=== PATIENT | male | born 1970 | race Caucasian/White ===

== ENCOUNTER 2016-10-16 03:16 | Inpatient (IN) | payer MEDICAID, OTHER ==
[~2016-10-16] VITALS: Ht 175.3 cm; Wt 105.4 kg
--- NOTE | ~2016-10-16 | HP ---
PATIENT'S NAME: MARQUES GLASER [facility] AGE: 46 Y [address] ROOM: [id number] [place], [place] [address] [facility]: [facility] ADMIT DATE: 10/16/2016 History & Physical DISCHARGE DATE: FAMILY PHYSICIAN: PHYSICIAN, NO ATTENDING PHYSICIAN: SUSANNE BISWAS DATE OF SERVICE: CHIEF COMPLAINT: Syncope and chest tightness. HISTORY OF PRESENT ILLNESS: This is a 46-year-old male who is somewhat a poor historian. Given that he is nonspecific with his symptoms. The story is that he has been having this recurrent syncope for over the past 1 or 2 years and sometimes, they are associated with after taking a hot shower or after urinating what seems like situational syncope. He also has been having this chronic shortness of breath on exertion for the last 6 months. That has been getting worse. He also has been having this on and off chest pain in the whole anterior chest for roughly 2-3 years and sometimes is associated with exertion, sometimes is at rest. He states that he had this chest pain about 1- 2 times a day and roughly on an average 2 days per week. He also chronically has chronic yellowish productive cough in the morning when he wakes up from his heavy smoking. Today, around 1:00 a.m. in the morning, the patient was sitting on the kitchen table and when he tried to walk, he said that he again suffered another syncope without any prodrome symptoms. He said he probably passed out about 2 minutes, that is what the sister told him when he woke up. When the patient woke up, the patient had no recollection about what happened, but he also denies any jerking movement or any drooling or urinary incontinence or fecal incontinence, but he said he was a little bit slightly confused upon awakening. He said that when he woke up, he had this chest tightness in his anterior whole chest, intensity about 2/10 without radiation and is constant. Because of these symptoms, the patient was brought to the emergency room by his sister for evaluation. The patient's primary care physician was in [place], but he has not seen the primary care physician for several years and he does not usually go to a physician. The patient is adopted, therefore he does not know anything about his parents, but he has a sister who has had 3 myocardial infarctions at age 40 and required multiple stents and also has diabetes type 2. The patient is a heavy smoker, about 1-1/2 pack per day for the last 30 years. He chronically coughs yellowish phlegm, which is likely from his undiagnosed COPD. The patient has never been told he had any heart problem, he has never PATIENT'S NAME: MARQUES GLASER [facility] AGE: 46 Y [address] ROOM: [place] [address] [facility]: [facility] ADMIT DATE: 10/16/2016 History & Physical DISCHARGE DATE: FAMILY PHYSICIAN: PHYSICIAN, NO ATTENDING PHYSICIAN: SUSANNE BISWAS been told he has hypertension, and he has never seen a rehab aid before, and he has also never had an echo before either. The patient has also been complaining of several months of peripheral neuropathy symptoms such as peripheral neuropathy symptoms what he describes as numbness and also tingling and sometimes pain in bilateral lower extremities, worse at night during sleep. Pain goal three and please. REVIEW OF SYSTEMS: As mentioned in the history of present illness. All other systems were reviewed and they were negative except those mentioned in the history of present illness. PAST MEDICAL HISTORY: Diabetes type 2. No other known past medical history according to the patient. ALLERGIES: NO KNOWN DRUG ALLERGIES ACCORDING TO THE PATIENT. HOME MEDICATIONS: The list will be reconciled with the pharmacy in the morning. The patient states that he does take metformin at home, but he does not take anything for blood pressure. SOCIAL HISTORY: The patient is a heavy smoker about 1-12 packs per day for the last 30 years and he still smokes. The patient denies any alcohol or any illegal drug use. PAST SURGICAL HISTORY: Status post nasal polyp removal. FAMILY HISTORY: The patient is adopted. The patient's sister has had 3 myocardial infarctions requiring multiple stents and also has diabetes and the sister had all 3 myocardial infarctions in her 40s. PHYSICAL EXAMINATION: VITAL SIGNS: Temperature 98, blood pressure 145/87, respirations 14, heart rate 86, saturation 96% on 2 L nasal cannula. GENERAL APPEARANCE: Alert and oriented x3, in no acute distress. HEENT: Pupils are equally round and reactive to light. Extraocular muscles intact. Anicteric sclerae. Nasal turbinates are normal bilaterally. Moist oral mucosa. NECK: Positive JVD. CARDIOVASCULAR: Regular rate and rhythm. Normal S1, S2. No murmur, no rubs, PATIENT'S NAME: MARQUES GLASER [facility] AGE: 46 Y [address] ROOM: [id number] [place], [place] [address] [facility] ADMIT DATE: 10/16/2016 History & Physical DISCHARGE DATE: FAMILY PHYSICIAN: PHYSICIAN, NO ATTENDING PHYSICIAN: SUSANNE BISWAS no gallops. RESPIRATORY: I could appreciate rales in bibasilar lungs. No wheezing, no rhonchi, and no crackles. ABDOMEN: Obese, soft, nontender, nondistended, normal bowel sounds, no hepatosplenomegaly. Bowel sounds are present. EXTREMITIES: +2 bilateral pitting edema in bilateral lower extremities. The patient was not aware that his legs were swollen. NEUROLOGICAL: Grossly nonfocal. SKIN: No ulcer, no rash, no cyanosis. NEUROLOGIC: The patient has a decreased sensation in bilateral lower extremity, especially in bilateral feet. Otherwise, unremarkable. LABORATORY DATA: Troponin is less than 0.04, the first 2 sets. CPK 95, followed by 88. ProBNP 1735. White blood cells 11.1, hemoglobin 13.5, hematocrit 38.5, MCV 91.2, platelets 307. Glucose 287, BUN 14, creatinine 0.8. Sodium 139, potassium 4.7, chloride 104, CO2 27, calcium 8.9. Total protein 6.5, albumin 2.6, AST 16, ALT 16, alkaline phosphatase 122, total bilirubin 0.2, magnesium 2.1. Anion gap 12.7. GFR more than 60. Globulin 3.9. Hemoglobin A1c 11.8, INR 0.89, PTT 27. Urinalysis: 250 glucose. Negative leukocyte. Negative nitrite. Rare bacteria, 2-5 white blood cells, 20-50 red blood cells, 150 blood. CK-MB 2.1, followed by 1.8. D-dimer 1.53. IMAGING STUDIES: Chest x-ray on admission, the official report is pending. Based on my review, evidence of bilateral pleural effusion. 1. CT pulmonary angiogram on admission, the preliminary report was read as no pulmonary emboli. Mild cardiomegaly. Small bilateral pleural effusion. Mild bilateral interstitial thickening with patchy airspace opacities consistent with pulmonary edema. Findings likely represent congestive heart failure. Indeterminate bilateral pulmonary nodules with the largest measuring at 10 mm. 2. EKG on admission on October 16, 2016, at 3:18 a.m. show sinus tachycardia, heart rate of 101, RI 167 milliseconds, QRS 97 milliseconds, QTc 406 milliseconds, and the left axis deviation with a T inversion in the lead aVL consistent with inferior leads. Also, has evidence of LVH; however, I do not appreciate secondary repolarization change in the lateral leads, which is typically seen with left ventricular hypertrophy. 3. No prior EKG for comparison. ED COURSE: In the emergency room, the patient received one dose of IV Lasix 40 mg and one dose of a full dose aspirin 325 mg p.o. The patient has had about 250 mL of clear looking yellow urine after the Lasix was given. PATIENT'S NAME: MARQUES GLASER [facility] AGE: 46 Y [address] ROOM: [place] [address] LOCATION: [facility] ADMIT DATE: 10/16/2016 History & Physical DISCHARGE DATE: FAMILY PHYSICIAN: PHYSICIAN, NO ATTENDING PHYSICIAN: SUSANNE BISWAS ASSESSMENT AND PLAN: 1. Regarding his new onset congestive heart failure: I am going to get an echo in the morning to see which type of the heart failure this is. I will get a Cardiology consult in the morning. I have already spoken to Doug from the [facility] about this case and the reason for consult. I will cycle cardiac enzymes every 6 hours for 2 more sets. EKG again in the morning. Looking at the T-wave inversion in the inferior leads, to see if it has already resolved. I will defer further Lasix to Cardiology evaluation. N.p.o. for now in case will require some additional tests such as a stress test. The patient does have multiple risk factors for coronary artery disease including heavy smoking, strong sister history of myocardial infarction and required multiple stents, and the patient being diabetic himself, and sedentary lifestyle. Fluid restriction to less than 1.2 L per day and strict in's and out's and also daily weights. 2. Regarding his recurrent syncope: We will get an echo in the morning and defer evaluation by Cardiology. Continue telemetry monitoring for any arrhythmia. Perhaps, the patient's syncope could be from vasovagal or could be from any arrhythmia that was not yet detected. Continue telemetry monitoring and further plan depends on clinical course. The patient will be on fall precaution. 3. I will also get an orthostatic vital sign to rule out dehydration as the cause of the syncope. 4. Regarding his hyperglycemia from diabetes type 2: I will check A1c to see how well is his diabetes controlled. I will hold the metformin in case the patient requires contrast for any invasive studies. I will do sliding scale while he is in the hospital. If he is on other home medication, they can be continued as long as they do not affect the kidney such as metformin. 5. Regarding his pulmonary nodules: Follow up on the official report of the CT pulmonary angiogram to see what is the final report. If necessary, can consult oncology. Perhaps, this could be malignancy due to his history of heavy smoking for many years. 6. The patient could also have undiagnosed chronic obstructive pulmonary disease from his long-time history of smoking: He is not wheezing. I am not going to start any steroids. I am just going to order some nebulization with p.r.n. titrate by RT for RSS. 7. Regarding his active cigarette smoking: I will give him a nicotine patch 21 g transdermal per day. 8. Code status: He is a full code. Time spent in care on the day of admission 50 minutes including chart review, interviewing the patient, addressing all the questions and concerns that the patient had, examining the patient, and I went over the plan of care in detail with the nurses and also with the patient himself. I answered all of his questions to his satisfaction. Further plan depends on clinical course. PATIENT'S NAME: MARQUES GLASER [facility] AGE: 46 Y [address] ROOM: [address] [address] [facility] ADMIT DATE: 10/16/2016 History & Physical DISCHARGE DATE: FAMILY PHYSICIAN: PHYSICIAN, NO ATTENDING PHYSICIAN: SUSANNE BISWAS The patient currently is in agreement with the plan. I have also already spoken in person to Doug from the [facility] about Cardiology consult for this patient. SUSANNE BISWAS MD CC/sanjiv /[id number] D: [id number] T: [id number] HISTORY & PHYSICAL
--- NOTE | ~2016-10-16 | ER ---
PATIENT'S NAME: MARQUES GLASER [facility] AGE: 46 Y [address] ROOM: [place] [address] LOCATION: [facility] ADMIT DATE: 10/16/2016 ER/Outpatient Report DISCHARGE DATE: FAMILY PHYSICIAN: PHYSICIAN, NO ATTENDING PHYSICIAN: SUSANNE BISWAS Time of Arrival: 0316 hours. Time of Evaluation: 0316 hours. CHIEF COMPLAINT: Chest tightness. HISTORY OF PRESENT ILLNESS: The patient is a 46-year-old male who presents to the emergency department today with chief complaint of chest tightness. He reports he also passed out at home at approximately 2 o'clock this morning. He reports he has been dizzy over the past few weeks and he reports that he has passed out 4-5 times over the past couple months. However, this time, he developed the chest tightness as well as some shortness of breath and diaphoresis. Pain is currently 4-5/10 in severity. Denies any ripping or tearing sensation. No radiation back. PAST MEDICAL HISTORY: [id number] diabetes mellitus, ADHD. PAST SURGICAL HISTORY: Nasal polyps. SOCIAL HISTORY: The patient smokes a pack and a half. Denies any alcohol or illicit drug use. ALLERGIES: NO KNOWN DRUG ALLERGIES. MEDICATIONS: Please see list. PRIMARY CARE DOCTOR: None, just moved here from [place]. REVIEW OF SYSTEMS: All systems are reviewed by myself and are negative with the exception of those discussed in HPI and past medical history. PHYSICAL EXAMINATION: VITAL SIGNS: Weight 106.6 kg, blood pressure 173/96, pulse 106, respiratory PATIENT'S NAME: MARQUES GLASER [facility] AGE: 46 Y [address] ROOM: [place] [address] LOCATION: [facility] ADMIT DATE: 10/16/2016 ER/Outpatient Report DISCHARGE DATE: FAMILY PHYSICIAN: PHYSICIAN, NO ATTENDING PHYSICIAN: SUSANNE BISWAS rate 20, temperature 98.0, oxygen saturation 92% on room air. GENERAL: The patient is a 46-year-old male, who appears older than stated age. HEENT: Normocephalic, atraumatic. Pupils are equal, round, and reactive to light. Mucous membranes are moist. NECK: Supple. There is no nuchal rigidity. CARDIOVASCULAR: Tachycardic. No murmurs, rubs, or gallops. LUNGS: Diminished diffusely. ABDOMEN: Soft, nontender, and nondistended. No rebound, rigidity, or guarding. MUSCULOSKELETAL: The patient moves all 4 extremities. SKIN: The patient has 2+ pretibial edema in bilateral lower extremities. LABORATORY DATA AND X-RAYS: Labs and x-rays are obtained. EKG is obtained, is interpreted by myself at 0322 hours shows sinus tachycardia with a rate of 101, left axis deviation, normal interval. No ST elevation. There is left ventricular hypertrophy. There is T-wave inversions in aVL. CBC is unremarkable except for white blood cell count of 11.1. D-dimer is elevated at 1.53. CMP is unremarkable except for glucose 287. LFTs are normal. Magnesium is normal. Cardiac enzymes are normal. Coags are normal. ProBNP is 1735. One-view chest x-ray is obtained, it is interpreted by myself, shows mild cardiomegaly with some interstitial edema noted. CT scan of the chest, PE study is obtained, is reviewed by Radiology. The report shows no pulmonary embolism. There is mild cardiomegaly with small bilateral pleural effusions. There is mild bilateral interstitial thickening with patchy airspace opacities consistent with pulmonary edema. Findings likely represent congestive heart failure, indeterminate bilateral pulmonary nodules with the largest measuring 10 mm. IMPRESSION: 1. Chest pain, rule out acute coronary syndrome. 2. New onset congestive heart failure with bilateral pleural effusions and pulmonary edema. 3. Poorly controlled diabetes mellitus. 4. Indeterminate bilateral pulmonary nodules. 5. Initial visit. EMERGENCY DEPARTMENT COURSE: The patient was brought back to the examination room. Seen and evaluated by myself. IV is established. Laboratory analysis and imaging are obtained as described above. The patient is given aspirin. The results are obtained. The patient is given 40 mg of Lasix IV. He is placed on 2 L of nasal cannula. The patient does drop into the 90s. I have discussed the results with the patient, his sister, and his who is at the bedside. I have recommended admission to the hospital for further evaluation and treatment management. PATIENT'S NAME: MARQUES GLASER [facility] AGE: 46 Y [address] ROOM: [place] [address] [facility] ADMIT DATE: 10/16/2016 ER/Outpatient Report DISCHARGE DATE: FAMILY PHYSICIAN: CHASIDY DEXTER ATTENDING PHYSICIAN: SUSANNE BISWAS The patient is agreeable. I have contacted Dr. Biswas with the hospitalist Service. He does agree to accept the patient for further evaluation and treatment management. DISPOSITION: The patient is admitted under the care of the hospitalist service, Dr. Biswas, in stable condition. DO ROMANA RICHMOND/modl /[id number] d: 10/16/1647 t: 10/16/162000, OUTPATIENT REPORT
--- NOTE | ~2016-10-16 | CATH ---
Cardiac Diagnostic + PCI Report Demographics Patient Name JAILYN MOHAN Gender Male T Date of 1970 Age 46 year(s) Patient Number [id number] Date of Study 10/16/2016 Visit Number [id number] Room Number G6337 [place] [id number] Ht 175.26 cm Wt 105.5 kg Referring Kathryn Cherry MD Primary Physician Physician Performing Efstratiou Secondary Physician Physician Michelle Medley MD Diagnostic Efstratiou Assisting Physician Physician Michelle Medley MD Interventional Efstratiou Physician Undercover Operator Physician Michelle Medley MD Findings and Conclusions Diagnostic Findings and Conclusion Circumflex is chronically occluded, small with RCA collaterals. RCA has non-critical stenosis. Severe mid-LAD stneosis. Diagnostic Recommendations PCI to LAD. Interventional Findings and Conclusion Successful SOL to mid-LAD. Interventional Recommendations Aspirin, Ticagrelor, and therapy for new onset CHF. Smoking cessation. Procedure Description The patient was brought to the diagnostic cardiac catheterization-EP laboratory in the fasting, non-sedated state. Informed consent was obtained in the written and verbal form after the risks and benefits were explained. The patient had no further questions and agreed to proceed. The planned puncture-incision site(s) were shaved and prepped with ChloraPrep and draped in the usual sterile manner. Conscious sedation, supplemental oxygen, and pain control medications were delivered by a registered nurse under physician guidance. Surface ECG rhythm, blood pressure measurement, and pulse oximetry were monitored throughout the procedure. Arterial access. The access site was infiltrated with lidocaine. The vessel was entered with the Seldinger technique. A sheath was advanced into the vessel and used for catheter placement. Venous access. The access site was infiltrated with 2% lidocaine. The vessel was entered with the Seldinger technique. A sheath was advanced into the vessel and used for catheter placement. Selective left coronary angiography. A catheter was advanced into the left coronary vessel ostium under Fluoroscopic guidance. Contrast was injected by hand. Images were obtained in multiple projections. Selective right coronary angiography. A catheter was advanced into the right coronary vessel ostium under fluoroscopic guidance. Contrast was injected by hand. Images were obtained in multiple projections. Left heart catheterization. A catheter was advanced across the aortic valve to the left ventricle under fluoroscopic guidance. Resting hemodynamics were obtained. Right heart catheterization. A Barnet Chris catheter was successfully advanced to the right atrium, right ventricle, pulmonary artery, and pulmonary artery wedge position under fluoroscopic guidance. Resting hemodynamics were obtained. Measurements included pressures, arterial and venous oxygen saturation samples. The Barnet was removed without difficulty. Angioplasty and Stent Placement: A guiding catheter was used to intubate the vessel. A 0.14 wire was then used to cross the lesion. A balloon catheter was placed across the lesion and inflated. The balloon catheter was then removed. A Drug Eluting Stent was placed and inflated. Post placement angiograms were performed. Arterial and Venous hemostasis was achieved. The patient was transferred to a regular nursing floor via cart accompanied by a nurse. The patient left the laboratory in stable condition. Diagnostic Cath Status: Urgent Interventional Cath Status: Urgent Procedure Procedure Type Diagnostic procedure:Angiography:, Right and Left Heart Cath, Coronary Angios PCI procedure:Drug Eluting Coronary Stent:, LAD Indications: Heart Failure, Syncopal Episode and Shortness of breath. The procedure was explained in detail to the patient. Risks, complications and alternative treatments were reviewed. Written consent was obtained. Medications Reviewed with Patient prior to Procedure. Angiographic Findings Dominance: Right Cardiac Arteries and Lesion Findings LMCA: Lesion on LMCA: Distal subsection.30% stenosis . LAD: Lesion on Mid LAD: Mid subsection.90% stenosis 38 mm length reduced to 10%. Pre procedure DOMITILA III flow was noted. Post Procedure DOMITILA III flow was present. The guidewire cross was successful.The lesion was diagnosed as a high risk lesion.Culprit lesion. Devices used - Whisper Wire .014 x 190. Number of passes: 1. - Emerge Balloon 2.0 x 20. 2 inflation(s) to a max pressure of: 14 rohith. - Promus Premier 3.0 x 38 Stent. 1 inflation(s) to a max pressure of: 15 rohith. - NC Emerge Balloon 3.5 x 15. 3 inflation(s) to a max pressure of: 22 rohith. LCx: Lesion on Prox CX: Proximal subsection.100% stenosis .Chronic total occlusion. Coronary Tree Procedure Data Procedure Date Date: 10/16/2016Start: 09:56 AMEnd: 11:00 AM Entry Locations - Retrograde Percutaneous access was performed through the Right Radial artery (Primary location). A 6 Fr sheath was inserted. Hemostasis was successfully obtained using Mechanical Compression. Closure Comments: 13 ml of air in R. Band by Zion Le. - Antegrade Percutaneous access was performed through the Right Brachial vein. A 6 Fr sheath was inserted. Hemostasis was successfully obtained using Manual Compression. Closure Comments: Pressure held by Zion Herrmann Procedure Medications Order and Administration + + +--------+ + !Time !Medication !Dosage !Route ! + + +--------+ + !10/16/2016 !Fentanyl !25 mcg !I.V. ! !09:54 AM ! ! ! ! + + +--------+ + !10/16/2016 !Heparin (ACC_3) !3000 !I.V. bolus! !10:15 AM ! !units ! ! + + +--------+ + 10/16/2016 !PAE Radial Cocktail: Heparin 5000 units,! !I.A. ! !10:03 AM !Nitroglycerin 200mcg, Verapamil 3 mg ! ! ! ! !(ACC_3) ! ! ! + + +--------+ + !10/16/2016 !Versed !1 mg !I.V. ! !10:16 AM ! ! ! ! + + +--------+ + !10/16/2016 !Oxygen !2 l/min !NC ! !10:17 AM ! ! ! ! + + +--------+ + !10/16/2016 !Integrilin (ACC_7) !20 mg !I.C. ! !10:21 AM ! ! ! ! + + +--------+ + 10/16/2016 !Versed !1 mg !I.V. ! !10:23 AM ! ! ! ! + + +--------+ 10/16/2016 !Heparin (ACC_3) !3000 !I.V. bolus! !10:24 AM ! !units ! ! + + +--------+ + !10/16/2016 !Susana (Ticagrelor) (ACC_20) !180 mg !P.O. ! !10:40 AM ! ! ! ! + + +--------+ + Devices Used - A6 Fr. Balloon Wedge Catheterwas used for:Right heart cath. - A6 Fr. BS JR 4 Diag. Catheterwas used for:Right coronary angiography. - A6 Fr. BS JL 3.5 Diag. Catheterwas used for:Left coronary angiography. - A6 Fr. XBLAD 3.5 Guide Catheterwas used for:LAD Intervention. Contrast Material - Isovue [id number] ml Fluoroscopy Time: Diagnostic: 11:18 minutes. Total: 11:18 minutes. Fluoroscopy Dose: Diagnostic: 1682 mGy. Total: 1682 mGy. Estimated Blood Loss: 10 ml. Medical History Allergies - No known allergies. Risk Factors The patient risk factors include:insulin-treated diabetes mellitus, last creatinine: 0.8 mg/dl, creatinine clearance: 170.34 ml/min, Current/Recent(w/in 1 year) tobacco use and prior heart failure . Admission Data Admission Date: 10/16/2016 Admission Time: 05:10 AM Admit Source: Emergency department Insurance Payors: None. Admission Medications + +------+-----+---------+---------+ + + !Medication !Dosage!Times!Last !Last !Administered !Comments ! ! ! !Per !Delivery !Delivery ! ! ! ! ! !Day !Date !Time ! ! ! + +------+-----+---------+---------+ + + !Statin (any) ! ! ! ! ! ! ! + +------+-----+---------+---------+ + + !Unfractionated ! ! ! ! ! ! ! !Heparin (any) ! ! ! ! ! ! ! + +------+-----+---------+---------+ + + Clinical Evaluation Leading to Procedure Diagnosed on 10/16/2016 09:00 AM. - The patient's CAD presentation was assessed as: Unstable angina. - The patient's anginal syndrome during the past two weeks was assessed as: Class II according to the [place] Cardiovascular Society Classification System (CCS). - The patient has been in a state of heart failure within the past two weeks. - The patient's heart failure status was assessed as NYHA Class IV, with CHF symptoms of PND. Snapshots Hemodynamics Condition: Rest O2 Consumption: Estimated: 287.12Heart Rate: 97 bpm Oxygen Saturation +--------+-----+----+ +---+ + !Location!pCO2 !pO2 !% Saturation !Hgb!O2 Content ! +--------+-----+----+ +---+ + !RA ! ! !62.3 ! ! ! +--------+-----+----+ +---+ + !PA ! ! !60.5 ! ! ! +--------+-----+----+ +---+ + !FA ! ! !81.2 ! ! ! +--------+-----+----+ +---+ + Pressures (mmHg) +-----+ + !Site !Pressure ! +-----+ + !RA !05/15 (8) ! +-----+ + !RV !43/6 ,10 ! +-----+ + !PCW !28/28 (22) ! +-----+ + !PA !46/23 (34) ! +-----+ + !LV !127/12 ,21 ! +-----+ + !LV !128/12 ,22 ! +-----+ + !LV !133/12 ,26 ! +-----+ + !AO !122/75 (96) ! +-----+ + !LV !135/12 ,26 ! +-----+ + !AO !132/77 (103) ! +-----+ + !AO !147/84 (110) ! +-----+ + Cardiac Output +------+ + + + !Method!CO (l/min) !CI (l/min/m2) !SV (ml) ! +------+ + + + !Guadalupe !7.56 !3.4 !77.98 ! +------+ + + + Valve Gradients and Areas + +--------+--------+--------+---------+ + + !Valve !Peak !Mean !Area !Index !Flow !Source ! + +--------+--------+--------+---------+ + + !Aortic !14 !13 !1.86 !0.85 !296.59 !Guadalupe ! + +--------+--------+--------+---------+ + + !Aortic !14 !13 ! ! ! ! ! + +--------+--------+--------+---------+ + + Shunts Oxygen Values O2 Capacity 183.6 O2 Consumption 287.12 Flows (l/min) Qs 8.27 Vascular Resistance (dynes x sec x cm-5) + +-----+-----+----+----+---------+-------+ !CO method !TSVR !SVR !TPVR!PVR !TPVR/TSVR!PVR/SVR! + +-----+-----+----+----+---------+-------+ !Guadalupe !14.57!13.47!4.51!1.54!0.31 !0.11 ! + +-----+-----+----+----+---------+-------+ !Qp or Qs !13.32!12.31! ! ! ! ! + +-----+-----+----+----+---------+-------+ Signatures dtt: Satinder Banuelos dtd: 10/16/16 0956 Physician Self Edit
--- NOTE | ~2016-10-16 | CON ---
PATIENT'S NAME: MARQUES GLASER [facility] AGE: 46 Y [address] ROOM: [place] [address] LOCATION: GPCU ADMIT DATE: 10/16/2016 Consultation DISCHARGE DATE: FAMILY PHYSICIAN: PHYSICIAN, CHASIDY ATTENDING PHYSICIAN: SUSANNE BISWAS DATE OF CONSULTATION: 10/16/2016 REFERRING PHYSICIAN: Satinder Banuelos MD REASON FOR CARDIOLOGY CONSULT: New congestive heart failure and chest pressure. HISTORY OF PRESENT ILLNESS: This is a 46-year-old male who presents to [facility] after experiencing postural nocturnal dyspnea as well as a syncope prior to admission. The syncope was witnessed by his sister, and it resolved spontaneously. There was no notation of incontinence or seizure-like activity. The patient admits to being short of breath for the last 6 months, but has not ever seen a healthcare provider due to the absence of health insurance. He recently moved with his and son to [place], [place], from [place] to be closer to his sister and is currently unemployed. His past medical history includes diabetes mellitus for the last 8 to 9 years and is on glipizide, metformin, and Januvia, but does not regularly perform Accu- Cheks. The patient is also a heavy cigarette smoker and has smoked half a pack per day for the last 30 years. He admits to chronic cough. Evaluation in the emergency department showed the patient having underwent a CT scan per PE protocol which was negative for pulmonary embolus, but did show cardiomegaly. When questioned about the syncopal episode, he describes awakening from the syncopal episode with chest pressure that did not radiate and was located in the anterior chest. Overall, at this time, he is resting comfortably without complaints. PAST MEDICAL HISTORY: As listed in the HPI. PAST SURGICAL HISTORY: Nasal polyp removal. FAMILY HISTORY: The patient is adopted, but his biological sister has had 3 previous myocardial infarctions as well as stenting to her coronary arteries as well as a stroke. SOCIAL HISTORY: As listed in the HPI as well as admitting to social alcohol use, but overall PATIENT'S NAME: MARQUES GLASER [facility] AGE: 46 Y [address] ROOM: [place] [address] LOCATION: GPCU ADMIT DATE: 10/16/2016 Consultation DISCHARGE DATE: FAMILY PHYSICIAN: PHYSICIAN, NO ATTENDING PHYSICIAN: SUSANNE BISWAS denies current illicit drug use. CURRENT MEDICATIONS: 1. Nitroglycerin IV per ACS protocol. 2. Alogliptin 12.5 mg p.o. daily. 3. Brilinta 90 mg p.o. twice daily. 4. Coreg 6.25 mg p.o. twice daily. 5. Entresto 49/51 mg p.o. twice daily. 6. Glucotrol 20 mg p.o. daily. 7. Protonix 40 mg p.o. daily. 8. Heparin 5000 units subcu 3 times daily. 9. NovoLog subcu on a mild sliding scale per a.c. and h.s. Accu-Cheks. 10. NicoDerm patch 21 mg transdermally daily. MEDICATION ALLERGIES: No known medication allergies. REVIEW OF SYSTEMS: Pertinent positive review of systems as listed in the HPI. All other review of systems evaluated and negative. PHYSICAL EXAMINATION: VITAL SIGNS: Temperature afebrile, pulse 91, respirations 20, blood pressure 144/89, and O2 saturation 94% on 1 L nasal cannula. The patient weighs 105.5 kg. SKIN: [place], warm, and dry. EYES: Sclerae are clear. No xanthelasma. ENT: Oral mucosa is pink and moist. No jugular venous distention noted. Does have mild carotid bruits. CHEST: Respirations are even and slightly labored. He does have bilateral rales noted. HEART: Regular rate and rhythm. Normal S1 and S2. He does have the presence of an S4. ABDOMEN: Soft and nontender, but obese. MUSCULOSKELETAL: Gait is normal. EXTREMITIES: Peripheral pulses palpable. No clubbing or cyanosis noted. Does have trace lower extremity edema present. PSYCHIATRIC: Alert and oriented. Mood and affect are appropriate. IMPRESSION AND PLAN: Per Dr. Banuelos. 1. Syncope. 2. Postural nocturnal dyspnea. 3. Anterior chest pressure. These symptoms could be suggestive of angina plus, with his newly discovered PATIENT'S NAME: MARQUES GLASER [facility] AGE: 46 Y [address] ROOM: [place] [address] LOCATION: GPCU ADMIT DATE: 10/16/2016 Consultation DISCHARGE DATE: FAMILY PHYSICIAN: PHYSICIAN, NO ATTENDING PHYSICIAN: SUSANNE BISWAS cardiomegaly, there is a high likelihood of congestive heart failure. We will evaluate the echocardiogram ordered by Dr. Biswas with the Hospitalist Service to fully evaluate ejection fraction as well as look for wall motion and valvular abnormalities. Due to the bundle of symptoms in a patient who has not sought medical care recently, the quickest and most efficient approach is to perform a selective coronary angiography with possible percutaneous intervention. We will start beta-colin and ISAAC inhibitor and continue to monitor, evaluate, and treat as appropriate. Thank you for this consult. Thank you for allowing [facility] to interact in the care of this patient. DESTINY CHRISTINE APRN FOR MD DAE BERMUDEZ/modl /[id number] d: 10/16/16 1904 t: 10/27/16 1823, CONSULTATION REPORT
--- NOTE | ~2016-10-16 | ECHO ---
Transthoracic Echocardiography Report (TTE) Demographics Patient Name MARQUES GLASER Date of Study 10/16/2016 T Patient Number [id number] Visit Number [id number] Date of 1970 Room Number G6337 Gender Male Number Age 46 year(s) Referring Kathryn Cherry MD Booking Manager Angeles Barry [facility] Physician Physician Interpreting Lakisha Martinez Uat Tester Physician A Supervising Ordering MD/MLP Physician Nurse Stress Safe Technician Conclusions Contractility Score Summary Summary The estimated left ventricular ejection fraction is 40%. Restrictive filling pattern (severe diastolic dysfunction). Moderate concentric left ventricular hypertrophy. The left ventricle is mildly dilated . Diffuse hypokinesis. Trivial mitral regurgitation by color Doppler. Procedure Type of Study TTE procedure:2D Echocardiogram. Procedure Date Date: 10/16/2016 Start: 08:39 AM Study Location: Inpatient Portable Technical Quality: Adequate visualization Indications:Congestive heart failure. Appropriate Use Criteria: 9 Patient Status: Routine HR: 90 bpm BP: 144/89 mmHg Allergies - No known allergies. M-Mode/2D Measurements LV Diastolic Dimension: 5.99 cm LV Systolic Dimension: 4.45 cm LV Septum Diastolic: 1.42 cm LV PW Diastolic: 1.39 cm AO Root Dimension: 2.8 cm Cardiac Output: 4.72 l/min AV Cusp Separation: 2.2 cm RV Diastolic Dimension: 2.97 cm LA volume: 50 ml LVOT: 2 cm LVOT VTI: 16.7 cm TAPSE: 1.92 cm LV Stroke volume: 52.44 ml Doppler Measurements AV Peak Velocity: 1.27 m/s MV Peak E-Wave: 1.11 m/s AV Peak Gradient: 6.45 mmHg AV Mean Gradient: 4 mmHg MV P1/2t: 52 msec LVOT Peak Velocity: 0.96 m/s PV Peak Velocity: 0.89 m/s PV Peak Gradient: 3.15 mmHg E' Septal Velocity: 0.06 m/s A' Septal Velocity: 0.1 m/s E' Lateral Velocity: 0.1 m/s A' Lateral Velocity: 0.15 m/s Findings Left Ventricle Restrictive filling pattern (severe diastolic dysfunction). Moderate concentric left ventricular hypertrophy. The left ventricle is mildly dilated . Diffuse hypokinesis. Right Ventricle Normal right ventricle structure and function. Left Atrium Normal left atrial size. Right Atrium Normal right atrial size. IVC measures 1.96 cm with inspiratory collapse. Mitral Valve Trivial mitral regurgitation by color Doppler. Aortic Valve The aortic valve is mildly sclerotic. Tricuspid Valve No tricuspid regurgitation by color Doppler. Pulmonic Valve Normal pulmonic valve structure and function. Pericardial Effusion No evidence of pericardial effusion. Pleural Effusion No evidence of pleural effusion. Signature dtt: Satinder Banuelos dtd: 10/16/16 0839 Physician Self Edit
--- NOTE | ~2016-10-16 | DS ---
PATIENT'S NAME: MARQUES GLASER [facility] AGE: 46 Y [address] ROOM: [address] [place], [place] [address] LOCATION: GPCU ADMIT DATE: 10/16/2016 Discharge Summary DISCHARGE DATE: 10/17/2016 FAMILY PHYSICIAN: PHYSICIAN, CHASIDY ATTENDING PHYSICIAN: Baldev Peralta PRINCIPAL DIAGNOSES: 1. Acute coronary syndrome, status post drug-eluting stent placement. 2. Acute systolic congestive heart failure. 3. Acute hypoxic respiratory failure. 4. Type 2 diabetes, uncontrolled. 5. Hypertension. 6. Hyperlipidemia. BRIEF HOSPITAL COURSE: This is a 46-year-old male, who presented with increasing shortness of breath and work of breathing over the course of several weeks. On evaluation, he was found to have an acute systolic CHF with estimated EF of 40%. The patient was subsequently taken to the clinical laboratory assistant and was found to have a severe LAD stenosis of 90 , and drug-eluting stent was placed by Dr. Banuelos. The patient had been on dual-antiplatelet therapy and was placed on core measure cardiac medications in the setting. He is tolerating all of this well. The patient will be discharged on aspirin 81 mg, Brilinta 90 mg b.i.d., Coreg 6.25 mg b.i.d., and Entresto b.i.d. as well. He will also be on Lasix 40 mg as well as Lipitor 80 mg daily. The patient is to follow up with Dr. Banuelos in 2 weeks. I spent time with the patient to explain things in regard to managing his heart failure as well as managing his diabetes. Detailed instructions are in the instruction sheet. The patient today felt well with no complaints of shortness of breath. PHYSICAL EXAMINATION: GENERAL: He is awake, alert, and oriented x3, in no acute distress. HEART: S1, S2. Regular rate and rhythm. ABDOMEN: Soft, nontender, nondistended. EXTREMITIES: Without edema. NEUROLOGIC: Nonfocal. MEDICATIONS: Per MAR and as described above. FOLLOWUP: PCP in 1 week and Cardiology in 2 weeks. Greater than 30 minutes were spent in discharge planning and facilitating. PATIENT'S NAME: MARQUES GLASER [facility] AGE: 46 Y [address] ROOM: [place] [address] LOCATION: GPCU ADMIT DATE: 10/16/2016 Discharge Summary DISCHARGE DATE: 10/17/2016 FAMILY PHYSICIAN: CHASIDY DEXTER ATTENDING PHYSICIAN: Baldev Peralta MD BG/sanjiv /[id number] d: 10/18/16 0411 t: 11/06/16 1523, DISCHARGE SUMMARY
[2016-10-16 03:37] LABS: BASOPHIL # 0.1 K/uL (0.0-0.2); BASOPHIL % 0.7 %; EOSINOPHIL # 0.1 K/uL (0.0-0.5); EOSINOPHIL % 1.3 %; HEMATOCRIT 38.5 % (37.0-53.0); HEMOGLOBIN 13.5 g/dL (12.0-17.0); IMMATURE GRANULOCYTE # 0.1 K/uL (0.0-0.3); IMMATURE GRANULOCYTE % 0.5 %; LYMPHOCYTE # 2.3 K/uL (0.8-4.0); LYMPHOCYTE % 20.8 %; MCHC 35.1 gm/dL (32.0-36.5); MCV 91.2 fl (83.0-98.0); MONOCYTE # 0.8 K/uL (0.0-1.0); MONOCYTE % 7.6 %; MPV 9.2 fl (9.4-12.4); NEUTROPHIL # (ANC) 7.7 K/uL (1.4-9.0); NEUTROPHIL % 69.1 %; NRBC % 0 /100WBC (0-0.00); PLATELET COUNT 307 K/uL (150-450); RBC 4.22 M/uL (4.00-6.00); RDW-CV 12.5 % (11.9-14.6); WBC 11.1 K/uL (4.0-11.0)
[2016-10-16 03:47] LABS: INR - (THERAPEUTIC) 0.89 (0.92-1.07); PROTIME 9.3 SECONDS (9.8-11.4); PTT 27 SECONDS (25-32)
[2016-10-16 03:57] LABS: ALBUMIN 2.6 gm/dL (3.5-5.0); ALK PHOS 122 IU/L (33-138); ALT 16 IU/L (12-78); ANION GAP 12.7 (10.0-19.0); AST 16 IU/L (10-40); BLOOD UREA NITROGEN 14 mg/dL (6-24); CALCIUM 8.9 mg/dL (8.5-10.5); CHLORIDE 104 mMol/L (96-110); CO2 27 mMol/L (22-32); CPK 95 IU/L (35-332); CREATININE 0.8 mg/dL (0.6-1.3); ESTIMATED GFR (MDRD EQUATION) > 60; MAGNESIUM 2.1 mg/dL (1.8-2.6); POTASSIUM 4.7 mMol/L (3.7-5.1); SODIUM 139 mMol/L (135-145); TOTAL BILIRUBIN 0.2 mg/dL (0.0-1.5); TOTAL PROTEIN 6.5 g/dL (6.0-8.4)
[2016-10-16] MEDS ORDERED: GLUCOPHAGE XR500 M1 PO (05:47)
[2016-10-16] MEDS ORDERED: JANUVIA50 MG PO (05:48)
[2016-10-16] MEDS ORDERED: GLUCOTROL10 MG PO (05:49)
[2016-10-16] MEDS ORDERED: TYLENOL ARTHRI650 MG PO (05:49)
[2016-10-16 05:52] LABS: CPK 88 IU/L (35-332)
[2016-10-16 06:15] LABS: BILIRUBIN URINE NEGATIVE (NEGATIVE); BLOOD URINE 150 /UL (NEGATIVE); GLUCOSE URINE 250 mg/dL (NEGATIVE); KETONE URINE NEGATIVE (NEGATIVE); LEUKOCYTES URINE NEGATIVE /UL (NEGATIVE); NITRITE URINE NEGATIVE (NEGATIVE); PH URINE 6.5 (4.0-8.0); PROTEIN URINE 100 mg/dL (NEGATIVE); UROBILINOGEN URINE NORMAL (NORMAL)
[2016-10-16 06:17] LABS: COLOR URINE YELLOW (YELLOW); TURBIDITY URINE CLEAR (CLEAR)
[2016-10-16 06:28] LABS: BACTERIA URINE RARE (NEGATIVE); EPITHELIAL URINE RARE #/HPF (NEGATIVE); RBC URINE 20-50 #/HPF (NEGATIVE); YEAST URINE FEW (NEGATIVE)
[2016-10-16 09:02] LABS: ANION GAP 11.1 (10.0-19.0); BLOOD UREA NITROGEN 14 mg/dL (6-24); CALCIUM 8.7 mg/dL (8.5-10.5); CHLORIDE 103 mMol/L (96-110); CO2 29 mMol/L (22-32); CPK 80 IU/L (35-332); CREATININE 0.8 mg/dL (0.6-1.3); ESTIMATED GFR (MDRD EQUATION) > 60; POTASSIUM 4.1 mMol/L (3.7-5.1); SODIUM 139 mMol/L (135-145)
--- NOTE | 2016-10-16 11:39 | NUR ---
[facility] note: 1130 When CDE went to patient's room, patient was asleep, following heart cath this a.m. with stent placement. There are no family members present, will check back with them later today to assess educational needs. A1C on admission was 11.8 %, was taking oral at home for diabetes, metformin held at this time. Anticipate patient needing insulin teaching prior to dismissal.
--- NOTE | 2016-10-16 15:04 | NUR ---
1502 Stopped by to see Carlito, he was on the phone and ask that I try back at a later time. Will attempt to see later today or tomorrow prior to his dismissal. In reviewing his chart, it appears that he lives at home with his in [place]. Per his Asa, plan is likely home upon dismissal from [facility]. He is listed as self pay, I did see that admissions had been in and given him his admission packet containing the financial assistance application. I visited with Rika from the [facility] dept, she is aware of Carlito being listed as self pay. CM to continue to follow and assist.
--- NOTE | 2016-10-16 16:28 | NUR ---
[facility] note: 1630 Talked to patient briefly, spouse not in room. Patient states he will complete the Diabetes Survival Skills checklist this evening when his spouse brings his glasses in. A1C 11.8 % and patient states he has not been taking his oral medication for diabetes at home the way that he is suppose to. Discussed need to improve glycemic control to assist in reducing risks of heart, eyes, kidneys and nerves. States he has a meter at home with 150 strips for one meter and some more for the ReliOn meter, but doesn't check his blood sugars on a regular basis. Patient states, "I have not been a good diabetic" Will check in with patient in a.m. to assess educational needs, and see what changes in medication may need to be appropriate, prior to dismissal.
--- NOTE | 2016-10-16 16:49 | NUR ---
Significant Event: A&O, VSS, AFEBRILE, ON 1L O2 TO KEEP SATS >94%. HEART CATH WITH STENT PLACED TO LAD BY , R) RADIAL/BRACHIAL APPROACH. 1200 ML FLUID RESTRICTION. IV FLUIDS AT 100 ML/HR TO L)AC. ECHO DONE. UP WITH SBA. PATIENT WOULD LIKE TO GO HOME TODAY R/T FINANCIAL CONCERNS BUT DR. SHANNON CONVINCED TO KEEP OVERNIGHT. MEKHI MORRIS.
--- NOTE | 2016-10-17 04:28 | NUR ---
Significant Event: Pt A&Ox3. Vital signs stable, weaned to RA with sats maintaining above 94%. No c/o chest pain or pain. SBA with ambulation for safety. Accuchecks ACHS, mild scale--no coverage last night. On <1.2L fluid restriction. Noted already on sheet intake. Cath dressings remain C/D/I. ECHO done yesterday with EF 40% and severe diastolic dysfunction. Remains in NSR. D/t pt having lots of dizzy spells and falls, pt is on a bed alarm, but uses call light appropriately. Follow up: Continue education on new HF diagnoses. Continue education on Hgb A1C and diabetes. Continue plan of care.
[2016-10-17 06:24] LABS: ALBUMIN 2.3 gm/dL (3.5-5.0); ALK PHOS 106 IU/L (33-138); ALT 15 IU/L (12-78); ANION GAP 13.2 (10.0-19.0); AST 45 IU/L (10-40); BLOOD UREA NITROGEN 17 mg/dL (6-24); CALCIUM 8.5 mg/dL (8.5-10.5); CHLORIDE 105 mMol/L (96-110); CO2 25 mMol/L (22-32); CREATININE 0.9 mg/dL (0.6-1.3); ESTIMATED GFR (MDRD EQUATION) > 60; POTASSIUM 4.2 mMol/L (3.7-5.1); SODIUM 139 mMol/L (135-145); TOTAL PROTEIN 5.9 g/dL (6.0-8.4)
[2016-10-17 06:26] LABS: TOTAL BILIRUBIN 0.4 mg/dL (0.0-1.5)
--- NOTE | 2016-10-17 11:14 | NUR ---
Diabetes center note: 0930 Reviewed and updated education regarding Diabetes management, as per Diabetes Survival Skills checklist that patient completed last evening. Patient admits that he has not been taking good care of himself, drinks multiple regular soda's and doesn't take Diabetes medication that he is suppose to. Patient states that in the past he has taken Lantus insulin., and is willing to add rapid acting Humalog per sliding scale if he is ordered to. CDE does provide a voucher from the [employer] for insulin, prefers pen device (in the event that he is dismissed on insulin) Discussed A1C of 11.8 % and damage to nerves, vessels, etc, and how to reduce these risks with future damage with proper glycemic control. Patient states that he plans to set up primary care with Dr. Soto because his sister sees him, offered services here for follow up at [facility]. Patient states that he has applied for Medicaid pending approval, he would like to come back for on-going assistance. Phone number and information provided with contact information. Recommendation written on the chart for Long and short acting insulin to be considered for orders upon dismissal. Discussed the risks of smoking (1 pack per day) with diabetes, and patient states he is willing to try to start reducing numbers of cigarettes per day, at this time he does have nicotine pack on and is willing to try harder. He reports that his has already verbalized to him to she is going to "make him to try harder" to control blood sugars and reduce risks of complications, as stated above. Care Management was called and left a message for Naya granados see patient, as patient states he has missed placed the financial assistance forms that he was given earlier.
--- NOTE | 2016-10-17 13:14 | NUR ---
Social visit with Carlito. Provided him with another financial assistance application for him to fill out when he gets dismissed as he states his lost the first one and he can't find the second one that he got yesterday. He is hoping that MD will round soon so he can go home. I let him know that I had talked with Dr. Ross and Bucky Jensen about trying to make his medications as low cost as they could. I provided him with a [employer] $18 card to help with the cost of that if he should be dismissed with that medication. Explained to him that his best option for lower cost meds would be [facility], he tells me that this is where he plans on getting his medications filled at. He denied any other questions, needs or concerns. CM to continue to follow and assist. Plan home.
[2016-10-17] MEDS ORDERED: ASPIRIN (CHILDR81 MG PO (14:17)
[2016-10-17] MEDS ORDERED: LIPITOR80 MG PO (14:19)
[2016-10-17] MEDS ORDERED: COREG6.25 MG PO (14:20)
[2016-10-17] MEDS ORDERED: LASIX40 MG PO (14:21)
[2016-10-17] MEDS ORDERED: PROTONIX40 MG PO (14:25)
[2016-10-17] MEDS ORDERED: ENTRESTO 49 MG1 EACH PO (14:27)
[2016-10-17] MEDS ORDERED: BRILINTA90 MG PO (14:28)
[2016-10-17] MEDS ORDERED: LANTUS SOL100 UNIT/1 SUB-Q (14:29)
--- NOTE | 2016-10-17 16:54 | NUR ---
Discharge Summary: Patient A/O x 3 and up in room independently. Vital signs stable: HR 91, RR 16, BP 129/74, O2 saturation 95% RA, temperature 98.2F, and denies pain and shortness of breath. Right radial and brachial sites clean/dry/intact with CSM WNL and sites soft. Discharge education included: diabetes education, CHF teaching, new medications/medications changes, post-heart catheterization cares, signs/symptoms to be alert for, general dismissal instructions, insulin injection instructions, and following up with Dr. Banuelos and Dr. Soto. Monitor and telemetry discontinued. Patient left PCU at approximately 1500 to [facility] entrance and then home to self care with family. No other needs at time of discharge. Elda RN 10/17/16
--- NOTE | 2016-10-19 14:27 | NUR ---
10/17/16 Introduced self and purpose of heart healthy education. Calendar given, information reviewed, verbalized understanding.
== END 2016-10-17 15:00 | disposition disaster alternative care site (69) | DRG 246 ==
LOC: GMED 03:16 → GPCU 05:10
PROVIDERS: Emergency Medicine; Internal Medicine Cardiovascular Disease; ADMIT Internal Medicine
DX: I11.0 Hypertensive heart disease with heart failure (principal); J96.01 Acute respiratory failure with hypoxia; I24.9 Acute ischemic heart disease, unspecified; J90 Pleural effusion, not elsewhere classified; I50.21 Acute systolic (congestive) heart failure; E11.65 Type 2 diabetes mellitus with hyperglycemia; E78.5 Hyperlipidemia, unspecified; I50.1 Left ventricular failure, unspecified; F17.210 Nicotine dependence, cigarettes, uncomplicated
CPT/HCPCS: C1725; C1769; C1874; C1887; C1894; C9600; J1327; J1644; J1940; J2250; J3010; J7030; J7050; Q9967

== ENCOUNTER 2016-12-21 23:41 | Emergency (ER) | payer MEDICAID ==
--- NOTE | ~2016-12-21 | ER ---
PATIENT'S NAME: MARQUES GLASER [facility] AGE: 46 Y [address] ROOM: [place] [address] LOCATION: [facility] ADMIT DATE: 12/21/2016 ER/Outpatient Report DISCHARGE DATE: 12/22/2016 FAMILY PHYSICIAN: Manoj Soto MD ATTENDING PHYSICIAN: Jarrett Heredia Time of arrival: 2341 hours. Time of evaluation: 2350 hours. CHIEF COMPLAINT: Difficulties in breathing. HISTORY OF PRESENT ILLNESS: The patient is a 46-year-old male who presents to the emergency department today with chief complaint of difficulties in breathing. He reports over the past 3-4 nights he has woken up gasping for breath. He does have a harsh cough. It is worse at night. Denies any chest pain. He discontinued his Lasix in mid November. Denies any fevers or chills. Does have some posttussive vomiting at times. No nausea or vomiting otherwise. PAST MEDICAL HISTORY: Congestive heart failure, insulin-dependent diabetes, dyslipidemia, ADHD, hypertension, coronary artery disease. PAST SURGICAL HISTORY: Stents in 2016, nasal polyps. SOCIAL HISTORY: The patient smokes 1 pack per day. Denies any alcohol or illicit drug use. ALLERGIES: NO KNOWN DRUG ALLERGIES. MEDICATIONS: Please see list. PRIMARY CARE DOCTOR: Manoj Soto MD REVIEW OF SYSTEMS: All systems are reviewed by myself and negative with the exception of those discussed in the HPI and past medical history. PHYSICAL EXAMINATION: VITAL SIGNS: Weight 105.4 kg, blood pressure 156/88, pulse 93, respiratory PATIENT'S NAME: MARQUES GLASER [facility] AGE: 46 Y [address] ROOM: [place] [address] LOCATION: [facility] ADMIT DATE: 12/21/2016 ER/Outpatient Report DISCHARGE DATE: 12/22/2016 FAMILY PHYSICIAN: Manoj Soto MD ATTENDING PHYSICIAN: Jarrett Heredia rate 18, temperature 97.8, oxygen saturation 96% on room air. GENERAL: The patient is a 46-year-old male, who appears stated age, in no acute distress. HEENT: Head: Normocephalic, atraumatic. Pupils are equal, round, and reactive to light. NECK: Supple. There is no nuchal rigidity. CARDIOVASCULAR: Regular rate and rhythm. No murmurs, rubs, or gallops. LUNGS. With fine crackles at the bases. ABDOMEN: Soft, nontender, and nondistended. No rebound, rigidity, or guarding. MUSCULOSKELETAL: The patient moves all 4 extremities. SKIN: The patient has 2+ pretibial edema in bilateral upper and lower extremities. LABORATORY DATA AND X-RAYS: Labs and x-rays are obtained. EKG is obtained, is interpreted by myself at 2350 hours shows sinus rhythm with a rate of 91, left axis deviation, normal interval, no ST elevation or ST depression. There is T-wave inversions in aVL, nonspecific. CBC is unremarkable. CMP is unremarkable. LFTs are normal. CK is 674. Cardiac enzymes are otherwise normal. ProBNP is 1117 and coags are normal. IMPRESSION: 1. Acute exacerbation of congestive heart failure. 2. Initial visit. ED COURSE: The patient was brought back to the examination room. Seen and evaluated by myself. IV is established. Laboratory analysis and imaging are obtained as described above. The patient is given 60 mg of Lasix IV. He does not appear in any acute respiratory distress at this time. He is breathing normally. I have discussed results with the patient. I have recommended and written a prescription for Lasix to take 20 mg p.o. b.i.d. for the next 5 days. He is to follow up with Dr. Soto in next 1 day or 2. I have discussed return to care instructions including worsening symptoms, chest pain, shortness of breath or any other concerns to return to the emergency department as soon as possible. is agreeable without further questions. DISPOSITION: The patient is discharged home in good condition. JARRETT HEREDIA DO PATIENT'S NAME: MARQUES GLASER [facility] AGE: 46 Y [address] ROOM: [place], [place] [address] LOCATION: ED ADMIT DATE: 12/21/2016 ER/Outpatient Report DISCHARGE DATE: 12/22/2016 FAMILY PHYSICIAN: Manoj Soto MD ATTENDING PHYSICIAN: Jarrett Heredia/sanjiv /[id number] d: 12/22/16 1111 t: 12/23/16 2103, OUTPATIENT REPORT
[~2016-12-21 23:41] MED LIST: ASPIRIN (CHILDR81 MG PO; BRILINTA90 MG PO; COREG6.25 MG PO; ENTRESTO 49 MG1 EACH PO; GLUCOPHAGE XR500 M1 PO; GLUCOTROL10 MG PO; JANUVIA50 MG PO; LANTUS SOL100 UNIT/1 SUB-Q; LASIX40 MG PO; LIPITOR80 MG PO; PROTONIX40 MG PO; TYLENOL ARTHRI650 MG PO
[2016-12-22 00:10] LABS: BASOPHIL # 0.1 K/uL (0.0-0.2); BASOPHIL % 0.7 %; EOSINOPHIL # 0.2 K/uL (0.0-0.5); EOSINOPHIL % 2.1 %; HEMATOCRIT 34.5 % (37.0-53.0); HEMOGLOBIN 12.3 g/dL (12.0-17.0); IMMATURE GRANULOCYTE % 0.3 %; LYMPHOCYTE % 27.2 %; MCH 32.2 pg (27.0-34.0); MCHC 35.7 gm/dL (32.0-36.5); MCV 90.3 fl (83.0-98.0); MONOCYTE # 0.6 K/uL (0.0-1.0); MONOCYTE % 8.8 %; MPV 8.9 fl (9.4-12.4); NEUTROPHIL # (ANC) 4.4 K/uL (1.4-9.0); NEUTROPHIL % 60.9 %; NRBC % 0 /100WBC (0-0.00); PLATELET COUNT 315 K/uL (150-450); RBC 3.82 M/uL (4.00-6.00); RDW-CV 12.5 % (11.9-14.6); WBC 7.3 K/uL (4.0-11.0)
[2016-12-22 00:22] LABS: INR - (THERAPEUTIC) 0.95 (0.92-1.07); PTT 32 SECONDS (25-32)
[2016-12-22 00:30] LABS: ALBUMIN 2.6 gm/dL (3.5-5.0); ALK PHOS 104 IU/L (33-138); ALT 18 IU/L (12-78); AST 20 IU/L (10-40); BLOOD UREA NITROGEN 29 mg/dL (6-24); CALCIUM 8.6 mg/dL (8.5-10.5); CHLORIDE 108 mMol/L (96-110); CO2 27 mMol/L (22-32); CPK 674 IU/L (35-332); CREATININE 1.3 mg/dL (0.6-1.3); MAGNESIUM 2.3 mg/dL (1.8-2.6); SODIUM 142 mMol/L (135-145); TOTAL PROTEIN 6.3 g/dL (6.0-8.4)
[2016-12-22 00:33] LABS: TOTAL BILIRUBIN 0.3 mg/dL (0.0-1.5)
== END 2016-12-22 01:06 | disposition disaster alternative care site (69) ==
LOC: GMED 23:41
PROVIDERS: Emergency Medicine
DX: I11.0 Hypertensive heart disease with heart failure (principal); I50.9 Heart failure, unspecified; I25.10 Atherosclerotic heart disease of native coronary artery without angina pectoris; E11.9 Type 2 diabetes mellitus without complications; F90.9 Attention-deficit hyperactivity disorder, unspecified type; E78.5 Hyperlipidemia, unspecified; F17.210 Nicotine dependence, cigarettes, uncomplicated; Z95.5 Presence of coronary angioplasty implant and graft; Z98.890 Other specified postprocedural states; Z79.4 Long term (current) use of insulin
CPT/HCPCS: J1940

== ENCOUNTER 2017-01-20 23:34 | Observation (INO) | payer MEDICAID ==
[~2017-01-20] VITALS: Ht 175.3 cm; Wt 100.4 kg
--- NOTE | ~2017-01-20 | HP ---
PATIENT'S NAME: MARQUES GLASER [facility] AGE: 46 Y [address] ROOM: [id number] [place], [place] [address] LOCATION: GPCU ADMIT DATE: 01/21/2017 History & Physical DISCHARGE DATE: 01/21/2017 FAMILY PHYSICIAN: Sudhakar Soto MD ATTENDING PHYSICIAN: Sudhakar Soto DATE OF SERVICE: CHIEF COMPLAINT: Chest pain. HISTORY OF PRESENT ILLNESS: The patient is a 46-year-old male, whom I saw this past 10 days in the office. At that time, he had been noncompliant and stopped his medication including his Entresto, Pradaxa, diuretic therapy, and cholesterol medicine. In my office at that time, he was short of breath, O2 sats of 90%, had 4+ edema in both legs, bilateral rales in the posterior lung newell to the mid posterior lung field, and a BNP of 792. At that time, I gave him Bumex 2 mg a day and had him come back to see me in 48 hours ago in the office. At that time, two days ago and two days prior to this admission, he had lost 9 pounds. His peripheral edema had improved. His shortness of breath has resolved, his rales in the posterior lung newell have resolved, and he felt much better. However, on both visits both 10 days ago and 2 days ago, his sugars were in the 350s. I upped his long-acting insulin and started him on a new regimen of insulin with meals. Only to have him present to the emergency room at this time with chest pain after taking a Viagra. The patient has been seen several times here at [facility]. He has been seen by the dynamite reclaimer here also. His problems include known coronary artery disease; noncompliance; diabetes mellitus, type 2 with hyperglycemia and need for insulin; and gastroesophageal reflux. When I saw him on admission, he is resting quietly. He says his pain has resolved and he states he wants to "get back on his medications." He will be seen later this morning by the dynamite reclaimer yarn preparation supervisor, to decide if he needs a stress test prior to going home or whether he could restart his medications and go home. Here on admission, his CMS shows a sodium of 137, potassium of 4.2, BUN of 28, and creatinine of 1.5, and his liver functions looked fine. His cardiac enzymes, CPK-MB and troponin-I are both normal. PATIENT'S NAME: MARQUES GLASER [facility] AGE: 46 Y [address] ROOM: [place] [address] LOCATION: [facility]PCU ADMIT DATE: 01/21/2017 History & Physical DISCHARGE DATE: 01/21/2017 FAMILY PHYSICIAN: Sudhakar Soto MD ATTENDING PHYSICIAN: Sudhakar Soto His white count on admission was 8800, hemoglobin 11.7, and platelet count was adequate. His D-dimer was 1.53, when checked last on 10/16/2016. His chest x- ray read by the radiologist here on admission shows a small right pleural effusion which he had, when I saw him the other day. So he is admitted on telemetry. We will let the dynamite reclaimer sort through things. I have signed dismissal orders should he go home later today, and he should see me in the office in a week. PAST MEDICAL HISTORY: See nurse's notes which are certainly been reviewed. MEDICATIONS: See nurse's notes which are certainly been reviewed. ALLERGIES: SEE NURSE'S NOTES. SOCIAL HISTORY: Does smoke. FAMILY HISTORY: Positive for coronary artery disease, sister. IMMUNIZATIONS: Status unknown. REVIEW OF SYSTEMS: Positive for the above including previous intervention for coronary artery disease, see Cardiology notation. PHYSICAL EXAMINATION: GENERAL APPEARANCE: A pope-haired bearded male who is alert, lying in bed. He is competent. HEENT: Shows pupils react to light. Funduscopic exam not done. TMs not visualized. Posterior pharynx clear. NECK: Unremarkable. I did not check for a bruit. He has no JVD. His thyroid is not enlarged. LUNGS: Clear anteriorly. HEART: Rhythm is regular. I do not hear murmur or rub. ABDOMEN: Benign. No point tenderness. PELVIC: Exam not done. RECTAL: Exam not done. EXTREMITIES: He has 4+ edema just above the ankles bilaterally. NEUROLOGIC: Shows cranial nerves intact. No lateralizing signs. PATIENT'S NAME: MARQUES GLASER [facility] AGE: 46 Y [address] ROOM: [place] [address] [facility] ADMIT DATE: 01/21/2017 History & Physical DISCHARGE DATE: 01/21/2017 FAMILY PHYSICIAN: Sudhakar Soto MD ATTENDING PHYSICIAN: Sudhakar Soto ASSESSMENT: 1. Chest pain, rule out myocardial infarction. 2. Noncompliance, well documented. 3. Coronary artery disease, manifested by previous myocardial infarction and intervention/stent. 4. Diabetes mellitus type 2 with hyperglycemia, noncompliance, requiring insulin. 5. Congestive heart failure secondary to coronary artery disease. PLAN: As above. SUDHAKAR SOTO MD GIS GEOGRAPHER/modl /[id number] D: [id number] T: [id number] HISTORY & PHYSICAL
--- NOTE | ~2017-01-20 | DS ---
PATIENT'S NAME: MARQUES GLASER [facility] AGE: 46 Y [address] [place] [facility] [address] [place], [place] [address] LOCATION: [facility]PCU ADMIT DATE: 01/21/2017 Discharge Summary DISCHARGE DATE: 01/21/2017 FAMILY PHYSICIAN: Sudhakar Heard MD ATTENDING PHYSICIAN: Sudhakar Heard FINAL DIAGNOSES: 1. The patient signed out against medical advice. 2. Chest pain, history of angina pectoris. No acute WA during admission. 3. Diabetes mellitus type 2, noncompliant. 4. History of coronary artery disease, status post stent placed in the past. 5. History of prior myocardial infarction. HOSPITAL COURSE: The patient was admitted to the hospital with chest pain. His cardiac workup here was negative for acute WA. However, he did not feel he needed to stay in the hospital, he signed out AMA. He understands the risks and benefits of that along with being a very noncompliant patient. 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 I had just seen him in the office as mentioned in my history and physical several days ago, and he was improved with Bumex therapy and loss of 9 pounds and was started on long-acting insulin again in a sliding scale. Certainly, there are questions of whether he will continue that. Hopefully, he will see me back in the office in a week. SUDHAKAR HEARD MD CHEMICAL ENGINEERING TECHNOLOGIST/modl /[id number] d: 01/23/17 2116 t: 02/14/17 0759, DISCHARGE SUMMARY
--- NOTE | ~2017-01-20 | CON ---
PATIENT'S NAME: MARQUES GLASER [facility] AGE: 46 Y [address] ROOM: [id number] [place], [place] [address] LOCATION: GPCU ADMIT DATE: 01/21/2017 Consultation DISCHARGE DATE: 01/21/2017 FAMILY PHYSICIAN: Manoj Soto MD ATTENDING PHYSICIAN: Manoj Soto REFERRING PHYSICIAN: Morteza Ray MD REFERRING PHYSICIAN: Manoj Soto MD REASON FOR CONSULT: Chest pain. HISTORY OF PRESENT ILLNESS: This is a 46-year-old gentleman who was admitted through the emergency room with complaints of chest pain. In October of this year, he was seen by Dr. Banuelos, underwent a left heart catheterization, and had extremely long drug-eluting stent placed to the mid LAD. The patient reports he has a history of coronary artery disease starting at the age of 39 at which time he had a myocardial infarction and had undergone heart catheterization with stents placed in [place]. In October, his heart catheterization showed chronic occlusion to the left circumflex, mild RCA with collaterals, and severe mid LAD stenosis. He underwent a drug-eluting stent 38 mm in length. He also had a left main of 30%, and his echocardiogram showed an EF of 40%. He was started on dual anti-platelet therapy which included Brilinta and aspirin. For his heart failure, he was initiated on Entresto. He tells me that he stopped the Brilinta after he received the 30-day free trial because, at that time, he did not have any insurance. He also states he has not followed up with his cheese maker. He admits he has not been taking his medications consistently at home either. A week ago, Sunday, he saw his primary care physician due to complaints of increased shortness of breath. He was given Bumex 2 mg daily, followed up in the clinic, was found to have lost 9 pounds, and had improvement of his shortness of breath. He states that his leg edema is unchanged or is his usual swelling now. Prior to the 9-pound weight loss, he was complaining of orthopnea. The orthopnea is resolved. He denies complaints of exertional chest heaviness. He denies palpitations, lightheadedness, or dizziness. He does complain of fatigue. His echocardiogram in October showed normal RV function. Currently, his troponin-I has been normal x2, and he is not on nitroglycerin because he had taken Viagra 2 hours prior to his admission. He is currently on a baby aspirin. The chest pain that he was experiencing prior to admission occurred while he was at rest. He notes he did not get up and walk around. So, he does not know if it worsened with activity. In addition to his chest pain and shortness of breath, he has been having problems with elevated blood sugars as high as in the 350 range. His medications were adjusted by his PATIENT'S NAME: MARQUES GLASER [facility] AGE: 46 Y [address] ROOM: [place] [address] LOCATION: GPCU ADMIT DATE: 01/21/2017 Consultation DISCHARGE DATE: 01/21/2017 FAMILY PHYSICIAN: Manoj Soto MD ATTENDING PHYSICIAN: Manoj Soto primary care physician. PAST MEDICAL HISTORY: 1. Coronary artery disease. 2. Poorly controlled diabetes mellitus. 3. Ischemic cardiomyopathy, last known EF 40%. 4. Dyslipidemia. 5. Hypertension. 6. Chronic kidney disease. 7. Chronic tobacco use. 8. Long-term anticoagulation-Pradaxa. PAST SURGICAL HISTORY: 1. Nasal polypectomy. 2. Left heart catheterization at the age of 39. 3. Left heart catheterization on 10/16/2016 with a drug-eluting stent placed in the LAD. ALLERGIES: NONE TO MEDICATION. MEDICATIONS: Medication list brought in by his included: 1. Aspirin 81 mg every day. 2. Bumex 2 mg every day. 3. Dabigatran 150 mg every day. 4. NovoLog FlexPen 8 units before breakfast. 5. Tresiba FlexTouch 40 units subcu daily. 6. Metoprolol tartrate 50 mg daily. 7. Entresto 49/51 mg daily. 8. Viagra 50 mg p.o. one time a day. 9. Zocor 40 mg every day. 10. Janumet 50/500 mg one tablet p.o. every day. FAMILY HISTORY: He was adopted, but his biological sister has had a myocardial infarction as well as a CVA. She also has diabetes mellitus, and her coronary artery disease started at the age of 40. SOCIAL HISTORY: The patient is . He smokes 1-1/2 packs of cigarettes a day and has done so for 35 years. REVIEW OF SYSTEMS: A 12-point review was conducted with the above HPI symptoms described. PATIENT'S NAME: MARQUES GLASER [facility] AGE: 46 Y [address] ROOM: [id number] [place], [place] [address] LOCATION: GPCU ADMIT DATE: 01/21/2017 Consultation DISCHARGE DATE: 01/21/2017 FAMILY PHYSICIAN: Manoj Soto MD ATTENDING PHYSICIAN: Manoj Soto PHYSICAL EXAMINATION: VITAL SIGNS: Blood pressure is 120/60, heart rate 75. He is afebrile. His weight is 100.4 kg. GENERAL: He is alert. He is oriented, answers questions appropriately. He does have a fairly flat affect. HEENT: Pupils are equal, round, and react briskly. NECK: Thick, but soft without any lymphadenopathy. JVD is flat. RESPIRATORY: Lung sounds are clear anteriorly, diminished posteriorly. CARDIOVASCULAR: Regular. His EKG is showing a regular sinus rhythm without new EKG changes. There is no murmur appreciated. ABDOMEN: Obese, but soft. Bowel sounds are present. EXTREMITIES: 1 to 2+ bilateral lower leg edema to mid castillo. Distal pulses are 1+. LABORATORY DATA: Troponin-I was negative x2. Hemoglobin A1c was 9.7. BUN is 15, creatinine 1.5, sodium 137, and potassium 4.2. ASSESSMENT: 1. Coronary artery disease with complaints of chest pain after drug-eluting stent placed in October 2016 with only one month of dual anti-platelet therapy. We will restart Plavix at loading dose 600 mg today, change his aspirin to 325 mg p.o. every day. We will place him n.p.o. after midnight, and he will be reevaluated by Dr. Banuelos in the morning. 2. Ischemic cardiomyopathy. His last known ejection fraction was 40%. He had stopped his Entresto. He is currently on diuretic therapy. His blood pressures are doing fairly well. We will decide about resuming his medications after he is evaluated by Dr. Banuelos. 3. Diabetes mellitus, poorly controlled. He is being evaluated by Dr. Manoj Soto. 4. Dyslipidemia. Recommend continuing the simvastatin therapy. 5. Long-term anticoagulation. I am not sure why he is on this medicine, but we will attempt to figure that out. The assessment and plan, history of present illness, and physical exam are per Dr. Ray. Dr. Banuelos will resume the patient's care on Sunday morning. TAMMY BOGGS APRN FOR MD JJ GAGEP/brianl PATIENT'S NAME: MARQUES GLASER [facility] AGE: 46 Y [address] ROOM: [place] [address] [facility] ADMIT DATE: 01/21/2017 Consultation DISCHARGE DATE: 01/21/2017 FAMILY PHYSICIAN: Manoj Soto MD ATTENDING PHYSICIAN: Manoj Soto /[id number] d: 01/21/171914 t: 02/08/17 1619, CONSULTATION REPORT
--- NOTE | ~2017-01-20 | ER ---
PATIENT'S NAME: MARQUES GLASER [facility] AGE: 46 Y [address] ROOM: [place] [address] LOCATION: GPCU ADMIT DATE: 01/21/2017 ER/Outpatient Report DISCHARGE DATE: FAMILY PHYSICIAN: SUDHAKAR HEARD MD ATTENDING PHYSICIAN: SUDHAKAR HEARD HISTORY OF PRESENT ILLNESS: This 46-year-old male, who presents with chief complaint of chest pain. It is all over his chest, radiating toward his back. Denies any shortness of breath, nausea, vomiting, or diaphoresis. He said it started about an hour ago and he says he wishes sitting on his couch watching the storm outside. Called EMS who gave him 4 aspirin, but declined to give him nitroglycerin as the patient had taken Viagra 2 hours before. The patient says his pain is currently 9.5/10 at that fast. Aspirin has not really helped. He denies any other complaints at this time. Of note, the patient recently was cathed back in October 2016, found to have significant mid LAD stenosis for which he received a stent. He is currently on several medications for this, but says that he is "the worst patient ever." He continues to smoke a pack per day and does not take his medications regularly. No other concerns at this time. PAST MEDICAL HISTORY: Includes hypertension, jxj-bjjkzua-tapyydavx diabetes, history of [place], history of heart failure. PAST SURGICAL HISTORY: One stent. SOCIAL HISTORY: He smokes 1-pack per day. He denies any drugs or alcohol use. No cocaine or meth. MEDICATIONS: Include: 1. Pradaxa 150 mg once a day. 2. Entresto 49 mg once a day. 3. Simvastatin 40 mg once a day. 4. Metoprolol 50 mg once a day. 5. Janumet 50/500 mg once a day. 6. Baby aspirin 81 mg once a day. 7. Bumex, unknown dose once a day. ALLERGIES: NONE. REVIEW OF SYSTEMS: PATIENT'S NAME: MARQUES GLASER [facility] AGE: 46 Y [address] ROOM: [place] [address] LOCATION: GPCU ADMIT DATE: 01/21/2017 ER/Outpatient Report DISCHARGE DATE: FAMILY PHYSICIAN: SUDHAKAR HEARD MD ATTENDING PHYSICIAN: SUDHAKAR HEARD Reviewed by me and negative with the exception of those discussed in HPI. PHYSICAL EXAMINATION: VITAL SIGNS: He is 5 feet 9 inches. He weighs 103 kilos. Blood pressure 141/66, heart rate is 85, respiratory rate 16, temperature is 98 Fahrenheit, saturating 91% on room air. GENERAL: The patient looks older than stated age. Looks uncomfortable, but not diaphoretic, not actively vomiting or retching. He is nontoxic. He is not pale. HEENT: Pupils are equal and reactive to light. He is A and O x4. GCS is 15. HEART: Heart rate is regular at this time. His heart rate is around 92 beats per minute. He does not have any chest wall tenderness. LUNGS: His lung sounds sound clear. I did not hear any labored breathing, tachypnea, or accessory muscle use. ABDOMEN: Soft, nontender, nondistended. No pulsatile mass. No right upper quadrant tenderness. No right lower quadrant tenderness. No left lower quadrant tenderness. No left upper quadrant tenderness. No CVA tenderness bilaterally. EXTREMITIES: He has 2+ pedal edema bilaterally. DIAGNOSTIC DATA: An EKG was done. On my read, he is in sinus rhythm. He has some nonspecific STT changes. He has some T-wave inversions in aVL and biphasic T-waves in 1, but otherwise this is pretty unchanged from his previous EKGs that were done in October of this year. The patient was also given IV morphine 4 mg for his pain as we cannot give him any nitroglycerin right now. We also checked some lab work which showed a proBNP of 3572, WBC of 8.8, H and H is 11.7 and 32.6, platelets are 318. No left shift. No bandemia. CMS: Sodium 137, potassium 4.2, chloride 100, CO2 30, anion gap 11.2, glucose is 300, BUN 28, creatinine 1.5, alkaline phosphatase is 112, AST is 11, ALT 14, GFR is 55. CK-MB is 2.5. Troponin is less than 0.04. EMERGENCY ROOM COURSE: Given the patient's past medical history and noncompliance with medications, current tobacco abuse; I would admit this patient to the hospital at least for observation. I discussed this with his primary care doctor, Dr. Heard, who will be admitting him to his service. Admitted in stable condition. IMPRESSION: Chest pain. PATIENT'S NAME: MARQUES GLASER [facility] AGE: 46 Y [address] ROOM: [id number] [place] [id number] LOCATION: [facility] ADMIT DATE: 01/21/2017 ER/Outpatient Report DISCHARGE DATE: FAMILY PHYSICIAN: SUDHAKAR HEARD MD ATTENDING PHYSICIAN: SUDHAKAR HEARD MD THONG OLSON/sanjiv /[id number] d: 01/21/17 0351 t: 01/21/17 0407, OUTPATIENT REPORT
[~2017-01-20 23:34] MED LIST changes: -BUMETANIDE2 MG PO; -JANUMET 50-5001 EACH PO; -LOPRESSOR50 MG PO; -NOVOLOG FL100 UNIT/1 SUB-Q; -PRADAXA150 MG PO; -TRESIBA FL100 UNIT/1 SUB-Q; -VIAGRA50 MG PO; -ZOCOR40 MG PO
[2017-01-21 00:06] LABS: BASOPHIL # 0.1 K/uL (0.0-0.2); BASOPHIL % 0.7 %; EOSINOPHIL # 0.2 K/uL (0.0-0.5); EOSINOPHIL % 1.9 %; HEMATOCRIT 32.6 % (37.0-53.0); HEMOGLOBIN 11.7 g/dL (12.0-17.0); IMMATURE GRANULOCYTE % 0.1 %; LYMPHOCYTE # 1.8 K/uL (0.8-4.0); LYMPHOCYTE % 20.5 %; MCH 32.1 pg (27.0-34.0); MCHC 35.9 gm/dL (32.0-36.5); MCV 89.3 fl (83.0-98.0); MONOCYTE # 0.9 K/uL (0.0-1.0); MONOCYTE % 9.7 %; MPV 8.8 fl (9.4-12.4); NEUTROPHIL # (ANC) 5.9 K/uL (1.4-9.0); NEUTROPHIL % 67.1 %; NRBC % 0 /100WBC (0-0.00); PLATELET COUNT 318 K/uL (150-450); RBC 3.65 M/uL (4.00-6.00); RDW-CV 12.1 % (11.9-14.6); WBC 8.8 K/uL (4.0-11.0)
[2017-01-21 00:26] LABS: ALBUMIN 2.3 gm/dL (3.5-5.0); ALK PHOS 112 IU/L (33-138); ALT 14 IU/L (12-78); ANION GAP 11.2 (10.0-19.0); AST 11 IU/L (10-40); BLOOD UREA NITROGEN 28 mg/dL (6-24); CALCIUM 8.5 mg/dL (8.5-10.5); CHLORIDE 100 mMol/L (96-110); CO2 30 mMol/L (22-32); CREATININE 1.5 mg/dL (0.6-1.3); POTASSIUM 4.2 mMol/L (3.7-5.1); SODIUM 137 mMol/L (135-145); TOTAL BILIRUBIN 0.4 mg/dL (0.0-1.5)
[2017-01-21] MEDS ORDERED: PRADAXA150 MG PO (01:37)
[2017-01-21] MEDS ORDERED: LOPRESSOR50 MG PO (01:38)
[2017-01-21] MEDS ORDERED: ZOCOR40 MG PO (01:38)
[2017-01-21] MEDS ORDERED: JANUMET 50-5001 EACH PO (01:44)
[2017-01-21] MEDS ORDERED: VIAGRA50 MG PO (01:45)
[2017-01-21] MEDS ORDERED: BUMETANIDE2 MG PO (01:45)
--- NOTE | 2017-01-21 02:03 | NUR ---
PATIENT WAS ADMITTED FOR CHEST PAIN. HE STARTED TO HAVE CHEST PAIN AT HOME IT LASTED ABOUT AN 1HR BEFORE HE CALL EMS. HE HAD VIAGRA TONIGHT SO NITRO WAS NOT GIVEN. HE DID RECIEVE A COUPLE BABY ASPRIN IN ROUTE. IN ER HE WAS GIVEN 4MG MORPHINE WITH SOME RELIEF OF CHEST PAIN NOTED. ON ARRIVAL TO HIS ROOM HE IS A/OX3. VSS ON RA. STANDBY ASSIST, ON BEDREST. CHEST PAIN / PATIENT STATES ITS TOLERABLE AT THIS TIME. LUNGS SLIGHTLY COURSE IN BASES. BOWEL SOUNDS PRESENT LAST BM 01/20. EDEMA +2 TO BILATERAL LEGS. ADA DIET. AC/HS ACCU CHECKS. [facility] CONSULT FOR AM. MED LIST NEED TO BE ADDRESSED. DR. Kauffman DID PLACE HEART STENT ABOUT 3 MONTHS AGO PER PATIENT. SMOKER AND ADMITS TO NOT TAKING HIS MEDICATIONS LIKE HE SHOULD.
[2017-01-21] MEDS ORDERED: TRESIBA FL100 UNIT/1 SUB-Q (02:14)
[2017-01-21] MEDS ORDERED: NOVOLOG FL100 UNIT/1 SUB-Q (02:16)
[2017-01-21 06:18] LABS: CPK 106 IU/L (35-332)
== END 2017-01-21 11:45 | disposition left against medical advice (07) ==
LOC: GMED 23:34 → GPCU 01-21 00:51
PROVIDERS: Emergency Medicine; ADMIT Family Medicine
DX: R07.9 Chest pain, unspecified (principal); I25.10 Atherosclerotic heart disease of native coronary artery without angina pectoris; I25.5 Ischemic cardiomyopathy; I25.2 Old myocardial infarction; E11.65 Type 2 diabetes mellitus with hyperglycemia; E11.22 Type 2 diabetes mellitus with diabetic chronic kidney disease; N18.9 Chronic kidney disease, unspecified; E78.5 Hyperlipidemia, unspecified; F17.210 Nicotine dependence, cigarettes, uncomplicated; Z79.01 Long term (current) use of anticoagulants; Z91.14 Patient's other noncompliance with medication regimen; Z95.5 Presence of coronary angioplasty implant and graft; Z79.899 Other long term (current) drug therapy; Z98.890 Other specified postprocedural states
CPT/HCPCS: A9270; G0378; J2270

== ENCOUNTER → 2017-01-20 | Outpatient (CLI) | payer MEDICAID ==
[~2017-01-20] MED LIST changes: +BUMETANIDE2 MG PO; +JANUMET 50-5001 EACH PO; +LOPRESSOR50 MG PO; +NOVOLOG FL100 UNIT/1 SUB-Q; +PRADAXA150 MG PO; +TRESIBA FL100 UNIT/1 SUB-Q; +VIAGRA50 MG PO; +ZOCOR40 MG PO
== END | disposition disaster alternative care site (69) ==
LOC: GAMB 23:08
DX: I20.9 Angina pectoris, unspecified (principal); R07.9 Chest pain, unspecified; Z79.899 Other long term (current) drug therapy